=== PATIENT | male | born 2000 | race Two or more races ===

== ENCOUNTER 2024-08-25 12:31 | Outpatient (AMB) | payer MEDICAID, SELFPAY ==
--- OUTSIDE RECORDS SUMMARY | 2024-08-25 12:36 | XMS_ITS | Clinical Summary ---
Author Organization [facility] Address [address] [place] [address] Care Team Providers Care Wire Bender Hand Name Role Phone Karthik Davenport Primary Care Provider [phone] Source Comments PLEASE NOTE, if this patient is a minor, it may be UNLAWFUL to discuss sensitive information that is contained in these records (such as FAMILY PLANNING, MENTAL HEALTH or SUBSTANCE ABUSE) with the minor patient's parent or other person without the patient's specific authorization.[facility] Allergies Active Allergy Reactions Criticality Noted Date Comments Fish Containing Products Swelling High 10/19/2023 Medications busPIRone (BUSPAR) 5 mg tablet GIVE 1 TABLET VIA G-TUBE TWICE A DAY 12/19/19 23 Active metoprolol tartrate (LOPRESSOR) 100 mg tablet TAKE 1 TABLET VIA GASTRIC TUBE TWICE A DAY. 08/10/19 24 Active metoprolol tartrate (LOPRESSOR) 25 mg tablet TAKE 1 TABLET VIA GASTRIC TUBE, TWICE A DAY, THIS ORDER IN ADDITION TO METOPROLOL 100 MG BID (TOTAL 125 MG BID) 08/16/19 24 Active metoprolol tartrate (LOPRESSOR) 50 mg tablet TAKE ONE TABLET BY GASTRIC TUBE EVERY 12 HOURS 10/29/19 23 Active sertraline (ZOLOFT) 100 mg tablet TAKE 1 TABLET VIA GIVE TUBE EVERY DAY 30 Tablet 3 11/29/19 24 Active baclofen (LIORESAL) 10 mg tabletIndicatio ns:Seizure disorder (HCC-CMS) TAKE 1 AND 1/2 (HALF) TABLET VIA G-TUBE THREE TIMES A DAY 135 Tablet 3 03/20/20 24 Active chlorhexidine (PERIDEX) 0.12 % solutionIndicat ions:Dental caries GIVE 15ML VIA MUCOUS MEMBRANE TWICE DAILY. 473 mL 03/20/20 24 Active diaper,brief,ad ult,disposableI ndications:Urin sukumar incontinence, unspecified type Use one adult brief XL Pullup style up to 5 per day. 150 Each 11 03/20/20 24 Active ELIQUIS 2.5 mg tabIndications: Deep vein thrombosis (DVT) of proximal lower extremity, unspecified chronicity, unspecified laterality ([facility]) TAKE 1 TABLET VIA G-TUBE TWO TIMES A DAY 60 Tablet 3 03/20/20 24 Active LORazepam (ATIVAN) 0.5 mg tabletIndicatio ns:Seizure disorder ([facility]) Take 1 Tablet by mouth 2 (two) times daily as needed for anxiety or sleep 60 Tablet 3 03/20/20 24 Active valproic acid, as sodium salt, (DEPAKENE) 250 mg/5 mL syrupIndication s:Seizure disorder ([facility]) TAKE 15 ML VIA G-TUBE TWO TIMES A DAY 900 mL 3 04/26/19 25 Active dextromethorpha n-guaifenesin (MUCINEX DM) 30-600 mg per 12 hr tabletIndicatio ns:Cough in adult Take 1 Tablet by mouth 2 (two) times daily as needed for cough or congestion for up to 7 days 14 Tablet 04/26/19 25 Active benzonatate (TESSALON) 100 mg capsuleIndicati ons:Cough in adult Take 1 Capsule by mouth 3 (three) times daily as needed for cough for up to 7 days 21 Capsule 04/26/19 25 Active azithromycin (ZITHROMAX) 250 mg tabletIndicatio ns:Cough in adult Take 2 tabs by mouth today, followed by 1 tab by mouth for four more days. 6 Tablet 04/26/19 25 Active levETIRAcetam (KEPPRA) 100 mg/mL solutionIndicat ions:Seizure disorder ([facility]) TAKE 15 ML via G-Tube TWICE DAILY 900 mL 3 08/02/19 25 Active levETIRAcetam (KEPPRA) 100 mg/mL solutionIndicat ions:Seizure disorder ([facility]) TAKE 15 ML VIA G-TUBE TWO TIMES A DAY 900 mL 3 03/20/20 24 025 Discontinued Active Problems Problem Noted Date Diagnosed Date Financial difficulties 03/20/2024 Housing problems 03/20/2024 TBI (traumatic brain injury) ([facility]) G tube feedings ([facility]) 10/19/2023 Seizure disorder ([facility]) 10/19/2023 DVT (deep venous thrombosis) ([facility]) Primary hypertension 10/19/2023 Encounters Date Type Department Care Team Description 07/12/2024 Interim Notes [facility] [id number] [place] [id number] Karthik Davenport PA Leg pain, bilateral (Primary Dx); Seizure disorder ([facility]) from Last 3 Months Social History Tobacco Use Types Packs/Day Years Used Date Smoking Tobacco: Never Smokeless Tobacco: Never Tobacco Cessation:Counseling Given: Not Answered Alcohol Use Standard Drinks/Week Comments Never 0 (1 standard drink = 0.6 oz pur e alcohol) Social Connections Answer Date Recorded Connectedness 1 03/20/2024 Financial Resource Strain Answer Date R ecorded Financial Resource Strain 2 2023 Stress Answer Date Recorded Stress 1 03/20/2024 Physical Activity Answer Date Recorded Physical Activity 0 09/27/2023 Food Insecurity Answer Date Recorded Food 1 03/20/2024 Transportation Needs Answer Date Record ed Transportation 1 03/20/2024 Housing Stability Answer Date Recorded Housing 2 03/20/2024 Safety and Environment Answer Date Sae rded Safety 0 09/27/2023 Utilities Answer Date Recorded Utilities 2 03/20/2024 Employment Answer Date Recorded Stress 0 01/05/2024 Sex and Gender Information Value Date Recorded Sex Assigned at Male 10/19/2023 11:38 AM PDT Legal Sex Male 10:21 AM PDT Gender Identity Male 10/19/2023 11:38 AM PDT Sexual Orientation Straight 10/19/2023 11 :38 AM PDT Last Filed Vital Signs Vital Sign Reading Time Taken Comments Blood Pressure 133/81 03/20/2024 11:23 AM EST Pulse 114 03/20/2024 11:23 AM EST Temperature 36.7 ??C (98.1 ??F) 03/20/2024 11:[address] Respiratory Rate 20 03/20/2024 11:23 AM EST Oxygen Saturation 98% 03/20/2024 11:23 AM EST Inhaled Oxygen Concentration - - Weight - - Height - - Body Mass Index - - Plan of Treatment Health Maintenance Due Date Last Done Comments Anxiety Screening 1998 Hepatitis C Screening 1998 Lipid Screening 1998 Imm-Varicella (1 of 2 - 13+ 2-dose series) 12/02/2011 HIV Screening 2013 Imm-HPV (1 - Male 3-dose series) 2013 Imm-DTaP/Tdap/Td (1 - Tdap) 2017 Imm-Hepatitis B (1 of 3 - 19+ 3-dose series) 8 [id number] (2023- season) 2023 Imm-Influenza (#1) 2023 Alcohol and Drug Screen 04/19/2024 03/20/2024 Depression Annual Screen 04/19/2024 03/20/2024 Annual Preventive Care Visit 03/20/2025 03/20/2024 Tobacco Screening 03/20/2025 03/20/[address] [employer] Care Teams Wire Bender Hand Relationship Specialty Start Date End Date Karthik Davenport PA [address] [place] [address] PCP - General [facility]ICINE [facility] 09/27/23
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
[2024-08-25 12:40] VITALS: BP 113/77; PULSE 100; BMI 18.3
--- NOTE | 2024-08-25 12:51 | MHC.OFFVIS ---
Vital Signs 08/25/24 12:40 Height 5 ft 2 in Weight 100 lb BMI 18.3 BP 113/77 Blood Pressure Location Lt brachial Position Sitting Pulse 100 Intake Visit Reasons: gtube Allergies fish Allergy (Intermediate, Uncoded 08/25/24 12:37) schocking HPI Comments Details: 23 yr old m with hx of TBI PFSH Surgical History (Updated 08/25/24 @ 12:39 by Shira Sy) Hx of tracheostomy Family History (Updated 08/25/24 @ 12:38 by Shira Sy) Mother Diabetes Social History (Updated 08/25/24 @ 12:37 by Shira Sy) Household Members: Family Alcohol intake: never Patient Tobacco Use Status: Never used Tobacco Use of substances other than those prescribed or required for medical reasons: No Physical Exam Vital Signs: Last Vital Signs Pulse 100 08/25/24 12:40 BP 113/77 08/25/24 12:40 BMI result Body Mass Index 18.3 Coding
== END 2024-08-25 13:22 | disposition home or self-care (01) ==
PROVIDERS: PCP Physician Assistant; Visit Provider Internal Medicine Gastroenterology
DX: Z93.1 Gastrostomy status (principal)
CPT/HCPCS: 99204

== ENCOUNTER → 2024-08-25 12:31 | Outpatient (BNVA) | payer MEDICAID, SELFPAY | PROVIDERS: PCP Physician Assistant; Visit Provider Internal Medicine Gastroenterology | DX: Z43.1 Encounter for attention to gastrostomy (principal); G82.20 Paraplegia, unspecified; Z87.820 Personal history of traumatic brain injury | CPT/HCPCS: 99202 ==

== ENCOUNTER 2024-10-30 14:49 | Outpatient (AMB) | payer MEDICAID, SELFPAY ==
--- NOTE | 2024-10-30 15:00 | A.OFFVIS_ITS ---
Vital Signs 10/30/24 15:07 Height 5 ft 2 in Weight 100 lb BMI 18.3 BP 113/80 Blood Pressure Location Rt brachial Position Sitting Pulse 124 H Intake Visit Reasons: REPLACE G TUBE Intake Note: Shoaib presents in the office as a G tube replacement. CC: States that he is here today for the change in the G TUBE. Fast Food Services Manager Required: No Allergies fish Allergy (Intermediate, Uncoded 10/30/24 15:05) schocking HPI HPI REPLACE G TUBE: Details: 23 yr old m here for G tube change The existing balloon was deflated and removed. The Naman Kaleb button 22 Fr, 3 Cm was lubricated and replaced into the gastrostomy site. The balloon was filled and the tube was in good position PFSH Surgical History Hx of tracheostomy Family History Mother Diabetes Social History Household Members: Family Alcohol intake: never Patient Tobacco Use Status: Never used Tobacco Physical Exam Vital Signs: Last Vital Signs Pulse 124 H 10/30/24 15:07 BP 113/80 10/30/24 15:07 BMI result Body Mass Index 18.3 Assessment & Plan Assessment & Plan (1) Gastrointestinal tube in situ: Code(s): Z93.1 - Gastrostomy status Category: Medical Plan: as above Coding Level of Care Code Procedure Only Diagnoses Gastrointestinal tube in situ Z93.1
[2024-10-30 15:07] VITALS: BP 113/80; PULSE 124; BMI 18.3
--- OUTSIDE RECORDS SUMMARY | 2024-10-30 16:03 | XMS_ITS | Clinical Summary ---
Author Organization [facility] Address [address] [place] [address] Care Team Providers Care Art Glass Designer Name Role Phone Karthik Davenport Primary Care Provider [phone] Source Comments PLEASE NOTE, if this patient [...] 1 TABLET VIA G-TUBE TWICE A DAY 3 Active metoprolol tartrate (LOPRESSOR) 100 mg tablet TAKE 1 TABLET VIA GASTRIC TUBE TWICE A DAY. 4 Active metoprolol tartrate (LOPRESSOR) 25 mg tablet TAKE 1 TABLET VIA GASTRIC TUBE, TWICE A DAY, THIS ORDER IN ADDITION TO METOPROLOL 100 MG BID (TOTAL 125 MG BID) 4 Active metoprolol tartrate (LOPRESSOR) 50 mg tablet TAKE ONE TABLET BY GASTRIC TUBE EVERY 12 HOURS 3 Active sertraline (ZOLOFT) 100 mg tablet TAKE 1 TABLET VIA GIVE TUBE EVERY DAY 30 Tablet 3 4 Active baclofen (LIORESAL) 10 mg tabletIndication s:Seizure disorder (CMS & HHS-HCC) TAKE 1 AND 1/2 (HALF) TABLET VIA G-TUBE THREE TIMES A DAY 135 Tablet 3 4 Active chlorhexidine (PERIDEX) 0.12 % solutionIndicati ons:Dental caries GIVE 15ML VIA MUCOUS MEMBRANE TWICE DAILY. 473 mL 4 Active diaper,brief,vida lt,disposableInd ications:Urinary incontinence, unspecified type Use one adult brief XL Pullup style up to 5 per day. 150 Each 11 4 Active ELIQUIS 2.5 mg tabIndications:D eep vein thrombosis (DVT) of proximal lower extremity, unspecified chronicity, unspecified laterality ([facility]) TAKE 1 TABLET VIA G-TUBE TWO TIMES A DAY 60 Tablet 3 4 Active LORazepam (ATIVAN) 0.5 mg tabletIndication s:Seizure disorder ([facility]) Take 1 Tablet by mouth 2 (two) times daily as needed for anxiety or sleep 60 Tablet 3 4 Active valproic acid, as sodium salt, (DEPAKENE) 250 mg/5 mL syrupIndications :Seizure disorder ([facility]) TAKE 15 ML VIA G-TUBE TWO TIMES A DAY 900 mL 3 5 Active dextromethorphan -guaifenesin (MUCINEX DM) 30-600 mg per 12 hr tabletIndication s:Cough in adult Take 1 Tablet by mouth 2 (two) times daily as needed for cough or congestion for up to 7 days 14 Tablet 5 Active benzonatate (TESSALON) 100 mg capsuleIndicatio ns:Cough in adult Take 1 Capsule by mouth 3 (three) times daily as needed for cough for up to 7 days 21 Capsule 5 Active azithromycin (ZITHROMAX) 250 mg tabletIndication s:Cough in adult Take 2 tabs by mouth today, followed by 1 tab by mouth for four more days. 6 Tablet 5 Active levETIRAcetam (KEPPRA) 100 mg/mL solutionIndicati ons:Seizure disorder ([facility]) TAKE 15 ML via G-Tube TWICE DAILY 900 mL 3 5 Active food supplemt, lactose-reduced liquid Jevity 1.2 evert TID x99 years. 48814 mL 11 5 Active Active Problems Problem Noted Date Diagnosed Date Financial difficulties 03/20/2024 Housing problems 03/20/2024 TBI (traumatic brain injury) ([facility]) 05/2023 G tube feedings ([facility]) 10/19/2023 Seizure disorder ([facility]) 10/19/2023 DVT (deep venous thrombosis) ([facility]) 05/2023 Primary hypertension 10/19/2023 Encounters Date Type Department Care Team Description 10/23/2024 Interim Notes [facility] [id number] [phone] Mae Dove [place] 10/23/2024 Interim Notes [id number] [place] [phone] Mae Dove MA from Last 3 Months Social History Tobacco Use Types Packs/Day Years Used Date Smoking Tobacco: Never Smokeless Tobacco: Never Tobacco Cessation:Counseling Given: Not Answered Alcohol Use Standard Drinks/Week Comments Never 0 (1 standard drink = 0.6 oz pur e alcohol) Social Connections Answer Date Recorded How often do you feel lonely or isolated from th ose around you? 1 03/20/2024 Financial Resource Strain Answer Date R ecorded Hard to pay for: Utilities 2 03/20 Stress Answer Date Recorded Do you feel these kinds of stress these days? 1 03/20/2024 Physical Activity Answer Date Recorded Physical Activity 0 09/27/2023 Food Insecurity Answer Date Recorded Hard to pay for: Food 1 03/20/2024 Transportation Needs Answer Date Record ed Hard to pay for: Transportation 1 03/20/2024 Housing Stability Answer Date Recorded Hard to pay for: Rent/Mortgage payment 2 03/20/2024 Safety and Environment Answer Date Sae rded Safety 0 09/27/2023 Utilities Answer Date Recorded Hard to pay for: Utilities 2 03/20 Employment Answer Date Recorded Stress 0 01/05/2024 [...] 114 03/20/2024 11:23 AM EST Temperature 36.7 C (98.1 F) 03/20/2024 11:23 AM EST Respiratory Rate 20 03/20/2024 11:23 AM EST Oxygen Saturation 98% 03/20/2024 11:23 AM EST Inhaled Oxygen Concentration - - Weight - - Height - - Body Mass Index - - Plan of Treatment Upcoming Encounters Date Type Department Care Team (Late st Contact Info) Description 11/08/2024 2:40 PM EDT Telemedicine Visit [facility] [id number] [place] [phone] Karthik Davenport PA [address] [place] [address] Health Maintenance Due Date Last Done Comments Anxiety Screening 1998 Hepatitis C Screening 1998 Lipid Screening 1998 Imm-Varicella (1 of 2 - 13+ 2-dose series) 12/02/2011 HIV Screening 2013 Imm-HPV (1 - Male 3-dose series) 2013 Imm-DTaP/Tdap/Td (1 - Tdap) 2017 Imm-Hepatitis B (1 of 3 - 19+ 3-dose series) 8 [id number] ( - 2023- season) 2023 Alcohol and Drug Screen 04/19/2024 03/20/2024 Depression Annual Screen 04/19/2024 03/20/2024 Imm-Influenza (#1) 2024 Annual Wellness (Adult): Indicated (All Coverage) 05/202403/20/2024 Tobacco Screening 03/20/2025 03/20/2024 Procedures Procedure Name Priority Date/Time Associated Diagnosis Comments REFERRAL TO GASTROENTEROLOGY Routine 08/25/2024 3:00 AM EDT G tube feedings ([facility]) from Last 3 Months Results * REFERRAL TO GASTROENTEROLOGY (08/25/2024 3:00 AM EDT) 08/25/2024 3:00 AM EDT Karthik WHITE REFERRAL Final Result from Last [address] [facility] A[facility] Care Teams Art Glass Designer Relationship Specialty Start Date End Date Karthik Davenport PA [address] [place] [address] PCP - General FAMILY MEDICINE, [place] 09/27/23
== END 2024-10-30 15:59 | disposition home or self-care (01) ==
LOC: HO.HGI 14:50
PROVIDERS: PCP Physician Assistant; Visit Provider Internal Medicine Gastroenterology
DX: Z93.1 Gastrostomy status (principal)
CPT/HCPCS: 43762

== ENCOUNTER → 2024-10-30 14:49 | Outpatient (BNVA) | payer MEDICAID, SELFPAY | PROVIDERS: PCP Physician Assistant; Visit Provider Internal Medicine Gastroenterology | DX: Z93.1 Gastrostomy status (principal) | CPT/HCPCS: 43762 ==